=== PATIENT | male | born 1970 | race Caucasian/White ===

== ENCOUNTER 2017-08-27 07:01 | Day surgery (SDC) | payer OTHER ==
[2017-08-26 12:41] VITALS: BMI 26.6
[2017-08-27 10:27] LABS: #Basophils 0.1 thou/uL (0.0-0.2); #Monocytes 0.6 thou/uL (0.11-0.59); #Neutrophils 6.9 thou/uL (1.40-6.50); %Basophils 0.8 % (0.0-1.0); %Eosinophils 0.3 % (0.0-10.0); %Lymphocytes 27.9 % (21.0-51.0); Hemoglobin 16.2 g/dL (14.0-18.0); Mean Corpuscular Hemoglobin 34.7 pg (27.0-31.0); Mean Corpuscular Volume 99.2 fl (80.0-94.0); Platelet Count 323 thou/uL (130-400); RBC Distribution Width 11.9 % (11.5-14.5); Red Blood Cell (RBC) Count 4.68 mill/uL (4.70-6.10); White Blood Cell (WBC) Count 10.6 thou/uL (4.8-10.8)
[2017-08-27] MEDS ORDERED: Midazolam HCl 2 mg/2 ml Vial ONE (10:27)
[2017-08-27] MEDS ORDERED: Lidocaine 2% 10 ML INJ ONE (10:29)
[2017-08-27] MEDS ORDERED: Bupivacaine HCl 0.5%/Epinephrine 1:200,000/PF 30 ml Vial ONE (10:29)
--- NOTE | 2017-08-27 10:33 | NM ---
LYMPHOSCINTIGRAPHY: Date: 08/27/17 HISTORY: Malignant melanoma of the skin in the right hemiabdomen. TECHNIQUE: Planar images of the chest, axilla, abdomen, pelvis, and proximal lower extremities were performed fo llowing the perilesional injection of 400 millicuries technetium-99m filtered sulfur colloid in the r ight hemiabdomen. Multiple foci of increased uptake in the right axillar lymph nodes are seen. There is also a focus of mildly increased uptake in the anterolateral right upper abdomen. IMPRESSION: Findings suggestive of sentinel lymph node in the right upper abdomen. POS: NADEGE
[2017-08-27] MEDS ORDERED: Isosulfan Blue 50 MG/5 ML VIAL ONE (10:34)
[2017-08-27] MEDS ORDERED: Fentanyl 250 MCG/5 ML VIAL ONE (10:40)
[2017-08-27] MEDS ORDERED: CEFAZOLIN/Water 2 GM/20 ML SYRINGE ONE (10:43)
--- NOTE | 2017-08-27 13:34 | OP ---
PREOPERATIVE DIAGNOSIS: Froylan's level 4 melanoma, right upper abdomen. SURGEON: Renny Menendez M.D. PROCEDURE PERFORMED: Lymphoscintigraphy, sentinel lymph node biopsy, wide local excision. INDICATIONS: A 46-year-old male, who had an excision of a nevus, which came back a Froylan's level 4, Breslow 1.4 melanoma right upper quadrant of abdomen. FINDINGS: I found one subcutaneous lymph node that was marked that I excised very small, about 3 mm, then found to axillary lymph nodes, one of which was very dark and highly suspicious. PROCEDURE IN DETAIL: After informed consent was obtained, the patient was taken to the operating jonathan m and given general endotracheal anesthesia. He had undergone injection of radionucleotide in the [facility] medicine department. His abdomen was prepped and draped, 4 mL of Lymphazurin was infiltrated i n the dermis surrounding this excisional area. Then the Neoprobe was used and a baseline was found o f 1. The radiologist had marked about 5 or 6 areas on his chest wall rather than doing that many cut s, I started off with the closest to the tumor and a transcutaneous counts of 35 were found there. A transverse incision performed. The subcu divided sharply. It was a tiny little lymph node about 4 mm in diameter excised. It had ex vivo counts still at about 35. Residual counts were minimal then moved to the axilla. Transcutaneous counts of 100 were found, transverse axillary incision was perfo rmed in vivo counts of 350 was found, and a very dark suspicious lymph node found. This was excised efferent and afferent lymphatics ligated with 3-0 Vicryl ties. The ex vivo counts were about 450, se nt to pathology. I found another lymph node with in vivo counts of about 40, this was dissected out. Efferent and afferent lymphatics were ligated with 3-0 Vicryl ties. It did not have any color to i t. It was sent to pathology as second sentinel node. Residual counts were all minimal. The subcuta neous reapproximated with interrupted 3-0 Vicryls. Skin closed with running subcuticular 4-0 Rapide. I then moved down to the original biopsy site. It was marked off with a 2 cm margin. An elliptica l incision was performed. The subcu divided sharply down to the fascia and it was removed off the fa scia. It was marked with a suture superior and sent to pathology for further analysis. Hemostasis w as achieved with electrocautery. Subcutaneous reapproximated with interrupted 3-0 Vicryl. Skin clos ed with a running subcuticular 4-0 Rapide. Steri-Strips applied. Sterile bandage applied. The geo ent tolerated the procedure well and was transferred to recovery in good condition. Sponge and needl e count verified correct x2.
[2017-08-27] MEDS ORDERED: PHENYLEPHRINE-NS 100 MCG/ML 10 ML SYRINGE ONE (19:48)
[2017-08-27] MEDS ORDERED: PROPOFOL 200 MG/20 ML VIAL ONE (19:48)
[2017-08-27] MEDS ORDERED: Lidocaine 1% PF 5 ML VIAL ONE (19:48)
[2017-08-27] MEDS ORDERED: Glycopyrrolate 0.2 MG/ML 5 ML SYRINGE ONE (19:48)
--- NOTE | 2017-10-07 09:02 | PQF ---
[facility] POST DISCHARGE CLINICAL DOCUMENTATION IMPROVEMENT CLARIFICATION FORM Todays Date: 09/07/17 Patients Name Shmuel Ly Admit Date 08/27/17 Disch Date 08/27/17 Fast Food Manager Name Ianmarina Rich Tate Email: [email or web address] Cell: [phone] Present Clinical Indicators - Signs / Symptoms Results and Location in Medical Record [ ] Documentation of: [ ] [ ] Documentation of: [ ] [ ] Documentation of: [ ] [ ] Documentation of: [ ] [ ] Risks [ ] [ ] [ ] Treatment [ ] Excision of RUQ skin lesion Please specify the excised diameter size of RUQ skin lesion in operative report [ ] [ ] Renny Whyte The documentation in this patients record requires clarification to ensure coding compliance and accuracy. Check the appropriate box and include in your discharge summary. [ ] [ ] [ ] [ ] Please check this box if this does not apply to this patient [ ] Unable to determine [ ] Other diagnosis: Review the following information and exercise your independent professional judgment in responding to the clarification. Based upon the clinical findings, risk factors, and treatment, please clarify if you are treating one of the above probable or suspected diagnoses. Physician Signature: Date Time MTDD
== END 2017-08-27 14:00 | disposition home or self-care (01) ==
LOC: NM 07:01 → SDC 14:00
PROVIDERS: ATTEND Surgery
PROC: 07B50ZX Excision of Right Axillary Lymphatic, Open Approach, Diagnostic (ICD-10-PCS; principal; 2017-08-27)
PROC: 0HB7XZZ Excision of Abdomen Skin, External Approach (ICD-10-PCS; principal; 2017-08-27)
DX: C43.59 Malignant melanoma of other part of trunk (principal); F17.210 Nicotine dependence, cigarettes, uncomplicated; Z91.018 Allergy to other foods; Z79.82 Long term (current) use of aspirin; Z79.899 Other long term (current) drug therapy
CPT/HCPCS: 78195; 85025; 88305; 88307; 88342; A9541; J0670; J2001; J2250; J2704; J3010; Q9968

== ENCOUNTER 2018-08-31 13:48 | Outpatient (CLI) | payer OTHER ==
--- NOTE | 2018-08-31 15:05 | ULT ---
SOFT TISSUE ULTRASOUND: HISTORY: Right axillary adenopathy. History of malignant melanoma right upper quadrant abdomen. FINDINGS: There are several lymph nodes seen in the right axilla. The largest one approximates 1.1 x 2.3 cm bu t appears to be almost totally fatty replaced. Several other smaller nodes are noted which are also mostly fatty replaced. IMPRESSION: Several lymph nodes in the right axilla which have mostly a fatty replaced appearance. POS: TPC
== END 2018-08-31 13:49 | disposition home or self-care (01) ==
LOC: BICULT 13:48
PROVIDERS: ATTEND Internal Medicine Medical Oncology
DX: C43.59 Malignant melanoma of other part of trunk (principal); R59.0 Localized enlarged lymph nodes
CPT/HCPCS: 76999